=== PATIENT | male | born 1945 | race Caucasian/White ===

== ENCOUNTER → 2023-06-15 | Outpatient (CLI) | payer OTHER, SELFPAY ==
--- NOTE | 2023-06-15 08:51 | ECHOD_ITS ---
Reason For Study: CAD/ASHD Procedure This was a 2D Doppler, Color Flow transthoracic echocardiogram. Exam performed in department. Left Ventricle Normal LV size. Left ventricular systolic function is normal. The estimated ejection fraction is 60 %. Stage 2 diastolic dysfunction. There are regional wall motion abnormalities as specified. Anterio-Basal: Hypokinetic. Mid-Anterior : Hypokinetic. Anterior [place] : Hypokinetic. Mid-Lateral : Hypokinetic. The rest of the wall segments are normal. Right Ventricle Normal RV size. Normal systolic function. Atria The left atrium is mildly enlarged. The right atrium is mildly enlarged. Mitral Valve Mild mitral annular calcification. There is no mitral valve stenosis. Mild (1+) mitral valve insufficiency. Tricuspid Valve Normal tricuspid valve. Mild (1+) tricuspid valve insufficiency. Right ventricular systolic pressure estimated to be 51 mmHg. Aortic Valve Trisinus/trileaflet aortic valve. Mild focal aortic valve calcification. Aortic sclerosis, no stenosis. Trivial aortic valve insufficiency. Pulmonic Valve Normal pulmonic valve. Trivial pulmonic valve insufficiency. Great Vessels Mild atherosclerosis of the ascending aorta. Pericardium/Pleural No pericardial effusion. MMode/2D Measurements & Calculations LVIDd: 5.3 cm IVSd: 0.79 cm Ao root diam: 3.1 cm LVIDs: 3.3 cm LVPWd: 0.88 cm LA dimension: 4.2 cm RVDd: 4.4 cm FS: 37.8 % LAV(MOD-bp): 81.8 ml LVAd ap4: 31.3 cm2 SV(MOD-sp4): 58.4 ml LAV(MOD-bp) Indexed: 45.9 ml/m2 LVLd ap4: 8.5 cm LAV(MOD-sp2): 80.0 ml EDV(MOD-sp4): 95.4 ml LAV(MOD-sp4): 75.9 ml EDV(sp4-el): 97.8 ml LVAs ap4: 17.1 cm2 LVLs ap4: 7.0 cm ESV(MOD-sp4): 37.0 ml ESV(sp4-el): 35.5 ml EF(MOD-sp4): 61.2 % EF(sp4-el): 63.7 % SV(sp4-el): 62.3 ml LA A4 area: 24.4 cm2 RA A4 area: 19.2 cm2 TAPSE: 2.6 cm Time Measurements MV dec time: 0.26 sec Doppler Measurements & Calculations MV E max erik: 99.2 cm/sec Lat Peak E' Erik: 9.9 cm/sec Med Peak E' Erik: 7.7 cm/sec MV A max erik: 110.3 cm/sec E/E' lat: 10.0 E/E' med: 12.9 MV E/A: 0.90 MV V2 max: 129.1 cm/sec MV P1/2t max erik: 129.1 cm/sec Ao V2 max: 155.3 cm/sec MV max P.7 mmHg MV P1/2t: 96.7 msec Ao max P.7 mmHg MV V2 mean: 71.1 cm/sec MV dec slope: 391.0 cm/sec2 Ao V2 mean: 102.0 cm/sec MV mean P.4 mmHg Ao mean P.9 mmHg MV V2 VTI: 50.3 cm MVA(P1/2t): 2.3 cm2 Ao V2 VTI: 40.2 cm AV (velocity ratio): 0.73 LV V1 max: 116.4 cm/sec PA V2 max: 103.6 cm/sec TR max erik: 345.7 cm/sec LV V1 max P.4 mmHg TR max P.8 mmHg LV V1 mean P.8 mmHg LV V1 mean: 76.8 cm/sec LV V1 VTI: 29.2 cm ECHO/Echo Complete Interpretation Summary The estimated ejection fraction is 60 %. Stage 2 diastolic dysfunction. There are regional wall motion abnormalities as specified. The left atrium is mildly enlarged. The right atrium is mildly enlarged. Mild (1+) mitral valve insufficiency. Right ventricular systolic pressure estimated to be 51 mmHg. Mild focal aortic valve calcification. There is no comparison study available. Ordering Physician: Marino Dunham Referring Physician: Marino Dunham Performed By: Ezra Reeves RCS
== END | disposition home or self-care (01) ==
PROVIDERS: PCP Family Medicine; Referring Provider Chiropractor; Visit Provider Chiropractor
DX: I25.10 Atherosclerotic heart disease of native coronary artery without angina pectoris (principal)
CPT/HCPCS: 93306